=== PATIENT | male | born 1955 | race African-American/Black ===

== ENCOUNTER 2019-07-31 11:05 | Day surgery (SDC) | payer OTHER ==
[~2019-07-31 11:05] MED LIST: CHONDR SU A NA/HYALUR INTRAOC KIT (SURGICARE) ONE; EPINEPHRINE INJ/PF 1 MG/1 ML AMPULE ONE; KETOROLAC TROMETHAMINE 0.45% 4 DROP/0.4 ML DROPERETTE OS PRN; LIDOCAINE 1% INJ-PF (10 MG/ML) 30 ML SDV ONE
[2019-07-31] MEDS ORDERED: FENTANYL CITRATE INJ/PF 100 MCG/2 ML AMPUL ONE (11:33)
[2019-07-31] MEDS ORDERED: ONDANSETRON HCL INJ/PF 4 MG/2 ML SDV ONE (11:33)
[2019-07-31] MEDS ORDERED: MIDAZOLAM 2 MG/2 ML INJ ONE (11:33)
[2019-07-31] MEDS: CYCLOPENTOLATE 0.2%/PHENYLEPHRINE 1% OPH SOLN 2 ML OS PRN ×3 (12:02→12:22)
[2019-07-31] MEDS: BESIFLOXACIN HCL 0.6% OPH SUSP 5 ML BOTTLE OS PRN ×4 (12:02→13:03)
[2019-07-31] MEDS: TROPICAMIDE 1% OPH SOLN 15 ML OS PRN ×3 (12:02→12:22)
[2019-07-31] MEDS: TETRACAINE HCL 0.5% OPH SOLN 4 ML OS PRN ×3 (12:03→12:30)
[2019-07-31] MEDS: DORZOLAMIDE HCL 2%/TIMOLOL MALEAT 0.5% OPH SOLN 10 ML OS PRN ×2 (12:40→13:03)
[2019-07-31] MEDS ORDERED: CHONDR SU A NA/HYALUR SOD 0.5 ML DISP.SYRIN ONE (12:44)
[2019-07-31] MEDS: TOBRAMYCIN SULFATE/DEXAMETH OPH OINTMENT 3.5 GM ONE ×2 (12:54→13:03)
== END 2019-07-31 13:39 | disposition home or self-care (01) ==
LOC: SC 11:05
PROVIDERS: ATTEND Ophthalmology
DX: H25.12 Age-related nuclear cataract, left eye (principal); I10 Essential (primary) hypertension; E11.9 Type 2 diabetes mellitus without complications; E78.00 Pure hypercholesterolemia, unspecified; Z79.84 Long term (current) use of oral hypoglycemic drugs; Z79.4 Long term (current) use of insulin; Z79.899 Other long term (current) drug therapy; Z79.82 Long term (current) use of aspirin
CPT/HCPCS: 66982; 82962; V2632; J2250; J3490 ×5; J0171; J3010; J2405; 142

== ENCOUNTER 2019-08-14 08:39 | Day surgery (SDC) | payer OTHER ==
[~2019-08-14 08:39] MED LIST changes: +KETOROLAC TROMETHAMINE 0.45% 4 DROP/0.4 ML DROPERETTE OD PRN; -KETOROLAC TROMETHAMINE 0.45% 4 DROP/0.4 ML DROPERETTE OS PRN; -LIDOCAINE 1% INJ-PF (10 MG/ML) 30 ML SDV ONE; +LIDOCAINE 1%/PHENYLEPHRINE 1.5% 1 ML VIAL ONE
[2019-08-14] MEDS: CYCLOPENTOLATE 0.2%/PHENYLEPHRINE 1% OPH SOLN 2 ML OD PRN ×3 (09:10→09:30)
[2019-08-14] MEDS: TROPICAMIDE 1% OPH SOLN 15 ML OD PRN ×3 (09:10→09:30)
[2019-08-14] MEDS: BESIFLOXACIN HCL 0.6% OPH SUSP 5 ML BOTTLE OD PRN ×4 (09:10→10:04)
[2019-08-14] MEDS: TETRACAINE HCL 0.5% OPH SOLN 4 ML OD PRN ×3 (09:10→09:42)
[2019-08-14] MEDS ORDERED: MIDAZOLAM 2 MG/2 ML INJ ONE (09:26)
[2019-08-14] MEDS ORDERED: FENTANYL CITRATE INJ/PF 100 MCG/2 ML AMPUL ONE (09:27)
[2019-08-14] MEDS: TOBRAMYCIN SULFATE/DEXAMETH OPH OINTMENT 3.5 GM ONE ×2 (10:04)
[2019-08-14] MEDS: DORZOLAMIDE HCL 2%/TIMOLOL MALEAT 0.5% OPH SOLN 10 ML OD PRN ×2 (10:04)
== END 2019-08-14 10:40 | disposition home or self-care (01) ==
LOC: SC 08:39
PROVIDERS: ATTEND Ophthalmology
DX: H25.11 Age-related nuclear cataract, right eye (principal); Z98.42 Cataract extraction status, left eye; E11.9 Type 2 diabetes mellitus without complications; Z79.82 Long term (current) use of aspirin; Z79.84 Long term (current) use of oral hypoglycemic drugs; Z79.899 Other long term (current) drug therapy
CPT/HCPCS: 66982; 82962; 00142; V2632; J2250; J3490 ×3; J0171; J3010; J2370; 142